=== PATIENT | female | born 1965 | race Caucasian/White ===

== ENCOUNTER 2025-08-06 17:38 | Emergency (ER) | payer MEDICARE | END 2025-08-06 19:32 | disposition short-term general hospital (02) | LOC: NAV ERS 17:38 | DX: T82.594A Other mechanical complication of infusion catheter, initial encounter (principal); L08.89 Other specified local infections of the skin and subcutaneous tissue; E11.22 Type 2 diabetes mellitus with diabetic chronic kidney disease; I12.9 Hypertensive chronic kidney disease with stage 1 through stage 4 chronic kidney disease, or unspecified chronic kidney disease; N18.30 Chronic kidney disease, stage 3 unspecified; Z86.73 Personal history of transient ischemic attack (TIA), and cerebral infarction without residual deficits; Z79.02 Long term (current) use of antithrombotics/antiplatelets; Z79.4 Long term (current) use of insulin; Z79.899 Other long term (current) drug therapy | CPT/HCPCS: 99284 ==